=== PATIENT | male | born 1945 | race Hispanic/Latino ===

== ENCOUNTER 2024-03-24 13:33 | Emergency (ER) | payer OTHER ==
[2024-03-24 14:45] LABS: Absolute Eosinophils 0.1 K/uL (0-0.5); Absolute Monocytes 0.7 K/uL (0.1-1.3); Absolute Neutrophil 2.6 K/uL (1.8-8.0); Basophils % 0.6 % (0-1.3); Eosinophils % 1.4 % (0-4.4); Hematocrit 44.5 % (39.6-49.0); Hemoglobin 15.1 g/dL (13.6-17.9); Lymphocytes % 23.1 % (15.3-44.8); MCH 29.7 pg (27.0-35.0); MCHC 33.9 g/dL (32.0-36.0); MCV 87.7 fL (80-100); MPV 8.5 fL (7.6-11.3); Monocytes % 15.8 % (3.3-12.3); Neutrophils % 59.1 % (41.7-73.7); Platelets 122 thou/uL (152-406); RBC Red Blood Cell Count 5.08 M/uL (4.33-5.43); Red Cell Distribution Width 13.5 % (12.1-15.2)
--- NOTE | 2024-03-24 14:45 | RAD REPORT ---
Exam:Foot Left 3 View CLINICAL HISTORY: Left foot pain FINDINGS: No fracture or dislocation seen No bony destructive lesion seen Osteoporosis
[2024-03-24 14:57] LABS: PT Prothrombin Time 12.1 SECONDS (9.4-12.5); PTT, Activated Partial Thromb 30.4 SECONDS (24.3-36.9); Protime INR 1.15
[2024-03-24 15:16] LABS: Albumin 3.1 g/dL (3.4-5.0); Albumin/Globulin Ratio 0.8 (1.1-1.8); Anion Gap 10.5 mEq/L (5.0-15.0); Bilirubin Total 0.4 mg/dL (0.2-1.0); Globulin 3.9 g/dL (2.3-3.5); Potassium 3.5 mEq/L (3.5-5.1)
--- NOTE | 2024-03-24 15:19 | RAD REPORT ---
EXAM:Lower Extremity Artery Uni Ltd HISTORY: Left eg pain TECHNIQUE: Sonographic evaluation lower extremity arteries performed.Grayscale, color and spectral analysis performed on all vessels COMPARISON: None. FINDINGS: Triphasic waveform left common femoral artery with mild to moderate plaque Moderate plaque left superficial femoral artery with biphasic waveforms diminished in amplitude. Occlusion leftt mid superficial femoral artery. Leftt distal superficial femoral artery and right popliteal arteries monophasic waveforms Left posterior tibial and dorsalis pedis arterial waveforms monophasic IMPRESSION: Occlusion mid left superficial femoral artery
--- NOTE | 2024-03-24 16:28 | EDPHYS ---
Physician Documentation [facility] Name: Ghanshyam Becker Age: 78 yrs Sex: Male : 1945 Arrival Date: 03/24/2024 Time: 13:33 Bed 15 Private MD: ED Physician Lalo Malhotra HPI: 03/24 13:54 This 78 yrs old Male presents to ER via Ambulatory with complaints of Wound Check - rn left foot. 13:54 Family member reports seen by PCP and sent here today for evaluation of wound. Patient rn has a wound for the last 2 weeks between his fourth and fifth left toes and not improving. They are using a purple antiseptic solution on it and were treating it as a fungal infection. PCP just wrote for antibiotics yesterday and patient started it without improvement. No fever or chills. No trauma. Patient is active smoker and history of hypertension.. Historical: - Allergies: 13:47 No Known Allergies; jb4 - PMHx: 13:47 HTN; jb4 - PSHx: 13:47 None; jb4 - Immunization history:: Adult Immunizations unknown. - Infectious Disease History:: Denies. - Social history:: Smoking status: Patient reports the use of cigarette tobacco products, smokes one pack cigarettes per day. - Family history:: not pertinent. - Hospitalizations: : No recent hospitalization is reported. ROS: 13:54 Constitutional: Negative for fever, chills, and weight loss, Cardiovascular: Negative rn for chest pain, palpitations, and edema, Respiratory: Negative for shortness of breath, cough, wheezing, and pleuritic chest pain, Abdomen/GI: Negative for abdominal pain, nausea, vomiting, diarrhea, and constipation, MS/Extremity: Positive for left foot wound Neuro: Negative for headache, weakness Exam: 13:54 Constitutional: This is a well developed, well nourished patient who is awake, alert, rn and in no acute distress. MS/ Extremity: Cool feet bilaterally, no cyanosis. Has macerated and shallow wound to the inner fourth and fifth toes of the left foot. No active bleeding. Does have purple discoloration secondary to the ointment they have been using. Difficult to appreciate but I can feel possibly weak dorsalis pedis pulse. 14:47 ECG was reviewed by the Attending Physician. rn Vital Signs: 13:45 BP 142 / 74; Pulse 89; Resp 16; Temp 98.8; Pulse Ox 95% on R/A; Weight 67 kg (M); jb4 Height 5 ft. 8 in. ; 14:20 BP 144 / 76; Pulse 84; Resp 20; Pulse Ox 97% ; db 15:00 BP 140 / 75; Pulse 81; Resp 16; Pulse Ox 95% on R/A; db 16:30 BP 138 / 71; Pulse 81; Resp 18; Pulse Ox 94% ; cm10 13:45 Body Mass Index 22.46 (67.00 kg, 172.72 cm) jb4 MDM: 13:36 Medical Screening Exam initiated rn 16:20 Differential diagnosis: Arterial insufficiency, cellulitis, nonhealing wound. Data rn reviewed: vital signs, nurses notes, lab test result(s), radiologic studies, plain films, ultrasound, and as a result, I will discharge patient. Management of patient was discussed with the following: Carpenter Helper: Discussed case with Dr. Arauz, went over the results and he states can follow-up in his clinic tomorrow, has an appointment at 330 as long as family calls. Will send home on antibiotics. Family member understands the importance of this as patient has a mid SFA occlusion but does have distal reconstitution and collateral flow to the foot.. Care significantly affected by the following chronic conditions: Hypertension, Active smoker. Counseling: I had a detailed discussion with the patient and/or guardian regarding the historical points, exam findings, and any diagnostic results supporting the discharge/admit diagnosis, lab results, radiology results, the need for outpatient follow up, to return to the emergency department if symptoms worsen or persist or if there are any questions or concerns that arise at home. ED course: Patient will call for appointment with Dr. Arauz, he has available appointment at [address] on antibiotics but I think the majority of his problem is the arterial insufficiency and smoking history. No emergent intervention required at this time or hospitalization and family understands this as well as the importance of follow-up appointment tomorrow. I have personally reviewed all of the results, including but not limited to blood tests and imaging deemed necessary to safely discharge this patient at this time. All results given to and printed out for patient. I personally went over all the results with the patient and answered all questions. Patient will follow-up with PCP and or specialist as discussed. Return precautions given and understood.. 03/24 13:51 Order name: Blood Culture Adult (2) rn 03/24 13:51 Order name: CBC with Diff; Complete Time: 14:54 rn 03/24 13:51 Order name: CMP; Complete Time: 15:20 rn 03/24 13:51 Order name: Lactate w/ 2H reflex if indic.; Complete Time: 16:03 rn 03/24 13:51 Order name: Protime (+inr); Complete Time: 15:07 rn 03/24 13:51 Order name: Ptt, Activated; Complete Time: 15:07 rn 03/24 13:51 Order name: Wound Culture rn 03/24 13:51 Order name: XRAY Foot LEFT 3 View; Complete Time: 14:54 rn 03/24 13:51 Order name: Lower Extremity Artery Uni Ltd US; Complete Time: 15:20 rn 03/24 13:51 Order name: EKG; Complete Time: 13:51 rn 03/24 13:51 Order name: Accucheck; Complete Time: 14:30 rn 03/24 13:51 Order name: Cardiac monitoring; Complete Time: 14:30 rn 03/24 13:51 Order name: EKG - Nurse/Tech; Complete Time: 14:30 rn 03/24 13:51 Order name: IV Saline Lock - Large Bore; Complete Time: 14:30 rn 03/24 13:51 Order name: Labs collected and sent; Complete Time: 14:30 rn 03/24 13:51 Order name: O2 Per Protocol; Complete Time: 14:30 rn 03/24 13:51 Order name: O2 Sat Monitoring; Complete Time: 14:30 rn 03/24 13:51 Order name: Vital Signs; Complete Time: 14:30 rn EC:47 Rate is 84 beats/min. Rhythm is regular. WV interval is normal. QRS interval is normal. rn QT interval is normal. No Q waves. T waves are Normal. No ST changes noted. Clinical impression: NSR w/ Non-specific ST/T Changes. Interpreted by me. Reviewed by me. Administered Medications: No medications were administered Disposition Summary: 03/24/24 16:27 Discharge Ordered Notes: Location: Home rn Problem: an ongoing problem rn Symptoms: are unchanged rn Condition: Stable rn Diagnosis - Other specified peripheral vascular diseases - Superficial Femoral Artery Occlusion rn - Unspecified open wound, left foot, initial encounter rn Followup: rn - With: Private Physician - When: Tomorrow - Reason: Recheck today's complaints, Continuance of care, Re-evaluation by your physician Discharge Instructions: - Discharge Summary Sheet rn - Peripheral Vascular Disease rn Forms: - Medication Reconciliation Form rn - Antibiotic hand pattern marker - Prescription Opioid Use rn - Patient Portal Instructions rn - Leadership Thank You Letter rn Prescriptions: - Bactrim DS 800-160 mg Oral Tablet - take 1 tablet ORAL route every 12 hours for 10 days; 20 tablet; Refills: 0, rn Product Selection Permitted Signatures: Dispatcher [employer] EDMS Lalo Malhotra MD MD rn Bryson, James, RN RN jb4 Corrections: (The following items were deleted from the chart) 13:52 13:51 BLOOD CULTURE*+BA.LAB.BRZ ordered. EDMS EDMS 13:52 13:51 CBC+H.LAB.BRZ ordered. EDMS EDMS 13:52 13:51 COMPREHENSIVE METABOLIC PANEL+C.LAB.BRZ ordered. EDMS EDMS 13:52 13:51 LACTATE+C.LAB.BRZ ordered. EDMS EDMS 13:52 13:51 PROTIME (+INR)+COAG.LAB.BRZ ordered. EDMS EDMS 13:52 13:51 PTT, ACTIVATED+COAG.LAB.BRZ ordered. EDMS EDMS
--- NOTE | 2024-03-24 16:28 | ER ---
Nurse's Notes [facility] Name: Ghanshyam Becker Age: 78 yrs Sex: Male : 1945 Arrival Date: 03/24/2024 Time: 13:33 Bed 15 Private MD: Diagnosis: Other specified peripheral vascular diseases-Superficial Femoral Artery Occlusion;Unspecified open wound, left foot, initial encounter Presentation: 03/24 13:45 Chief complaint: Patient's son or daughter states: He developed a wound on his left jb4 small toe about 15 days ago. We thought it was a fungus and were treating it. We took him to see his PCP today and they were concerned about what kind of wound it was and advised us to come here to the ER. Coronavirus screen: At this time, the client does not indicate any symptoms associated with coronavirus-19. Ebola Screen: No symptoms or risks identified at this time. Initial Sepsis Screen: Does the patient meet any 2 criteria? No. Patient's initial sepsis screen is negative. Does the patient have a suspected source of infection? No. Patient's initial sepsis screen is negative. Risk Assessment: Do you want to hurt yourself or someone else? Patient reports no desire to harm self or others. Onset of symptoms was March 24, 2024. Transition of care: patient was not received from another setting of care. 13:45 Method Of Arrival: Ambulatory [facility] 13:45 Acuity: GISSELL 3 jb4 Historical: - Allergies: 13:47 No Known Allergies; jb4 - PMHx: 13:47 HTN; jb4 - PSHx: 13:47 None; jb4 - Immunization history:: Adult Immunizations unknown. - Infectious Disease History:: Denies. - Social history:: Smoking status: Patient reports the use of cigarette tobacco products, smokes one pack cigarettes per day. - Family history:: not pertinent. - Hospitalizations: : No recent hospitalization is reported. Screenin:53 [facility] ED Fall Risk Assessment (Adult) History of falling in the last 3 months, cm10 including since admission No falls in past 3 months (0 pts) Confusion or Disorientation No (0 pts) Intoxicated or Sedated No (0 pts) Impaired Gait No (0 pts) Mobility Assist Device Used No (0 pt) Altered Elimination No (0 pt) Score/Fall Risk Level 0 - 2 = Low Risk Oriented to surroundings, Maintained a safe environment, Hourly rounding (assess needs \T\ fall precautionary measures) done. Abuse screen: Denies threats or abuse. Denies injuries from another. Nutritional screening: No deficits noted. Tuberculosis screening: No symptoms or risk factors identified. Assessment: 14:14 Reassessment: Patient appears in no apparent distress at this time. Patient and/or db family updated on plan of care and expected duration. Pain level reassessed. Patient is alert, oriented x 3, equal unlabored respirations, skin warm/dry/pink. Reassessment:. General: Appears in no apparent distress. comfortable, Behavior is calm, cooperative. Pain: Complains of pain in left foot. Neuro: Level of Consciousness is awake, alert, obeys commands, Oriented to person, place, time, situation. Respiratory: Airway is patent Respiratory effort is even, unlabored, Respiratory pattern is regular, symmetrical. Derm: Skin is black, Wound noted left fifth toe. 16:52 Reassessment: Patient appears in no apparent distress at this time. Patient and/or cm10 family updated on plan of care and expected duration. Pain level reassessed. Patient is alert, oriented x 3, equal unlabored respirations, skin warm/dry/pink. Patient states feeling better. Patient states symptoms have improved. Vital Signs: 13:45 BP 142 / 74; Pulse 89; Resp 16; Temp 98.8; Pulse Ox 95% on R/A; Weight 67 kg (M); jb4 Height 5 ft. 8 in. ; 14:20 BP 144 / 76; Pulse 84; Resp 20; Pulse Ox 97% ; db 15:00 BP 140 / 75; Pulse 81; Resp 16; Pulse Ox 95% on R/A; db 16:30 BP 138 / 71; Pulse 81; Resp 18; Pulse Ox 94% ; cm10 13:45 Body Mass Index 22.46 (67.00 kg, 172.72 cm) jb4 ED Course: 13:35 Patient arrived in ED. im 13:36 Lalo Malhotra MD is Attending Physician. rn 13:47 Triage completed. jb4 13:47 Arm band placed on right wrist. jb4 14:01 XRAY Foot LEFT 3 View In Process Unspecified. EDMS 14:01 Diane Franz, RN is Primary Nurse. db 14:01 Patient moved back from radiology. db 14:14 First set of blood cultures drawn Wound culture swab sent to lab. db 14:25 Initial lab(s) drawn, by me, sent to lab. Second set of blood cultures drawn. Inserted db saline lock: 22 gauge in right antecubital area, using aseptic technique. Blood collected. Flushed with 10 mL NS. 14:27 Patient taken to ultrasound. db 14:49 Lower Extremity Artery Uni Ltd US In Process Unspecified. EDMS 14:52 Patient moved back from ultrasound. db 15:23 Patient has correct armband on for positive identification. Bed in low position. Call db light in reach. Side rails up X 1. Client placed on continuous cardiac and pulse oximetry monitoring. NIBP monitoring applied. monitoring tech on. Pulse ox on. NIBP on. Warm blanket given. Pillow given. 16:53 Provided Education on: Follow-up instructions. cm10 16:53 No provider procedures requiring assistance completed. IV discontinued, intact, cm10 bleeding controlled, No redness/swelling at site. Pressure dressing applied. Administered Medications: No medications were administered Medication: 16:53 VIS not applicable for this client. cm10 Outcome: 16:27 Discharge ordered by . rn 16:53 Discharged to home ambulatory, with family, cm10 16:53 Condition: good 16:53 Discharge instructions given to patient, Instructed on discharge instructions, follow up and referral plans. medication usage, Demonstrated understanding of instructions, follow-up care, medications, Prescriptions given X 1, 16:53 Patient left the ED. cm10 Addendum: 03/27/2024 07:57 Addendum: Culture Results: Positive wound culture. No further action required. Bacteria e b sensitive to prescribed antibiotic. Signatures: Dispatcher [employer] EDMS Lalo Malhotra MD MD rn Bryson, James, RN RN jb4 Ronda Pedroza Danielle, JEREL RN Lucy Baez Clarissa RN RN cm10 Corrections: (The following items were deleted from the chart) 03/24 13:51 13:45 BP 142 / 74; Pulse 89bpm; Resp 16bpm; Pulse Ox 95% RA; Temp 98.8F; Height 5 ft. 8 jb4 in.; jb4
[2024-03-25 00:49] VITALS: TEMP 98.8
[2024-03-25 01:13] VITALS: BP 138/71; O2SAT 94
== END 2024-03-24 16:53 | disposition home or self-care (01) ==
LOC: ER 13:33
DX: I74.3 Embolism and thrombosis of arteries of the lower extremities (principal); I10 Essential (primary) hypertension; F17.210 Nicotine dependence, cigarettes, uncomplicated
CPT/HCPCS: 36415; 80053; 83605; 85025; 85610; 85730; 87040; 87070; 87077; 87186; 87205; 93005; 93926; 99285